=== PATIENT | male | born 1965 | race Caucasian/White ===

== ENCOUNTER 2017-04-06 14:43 | Emergency (ER) | payer MEDICAID ==
[~2017-04-06] VITALS: Ht 175.3 cm; Wt 88.5 kg
[~2017-04-06 14:43] MED LIST: CELEXA20 MG ORAL; CYCLOBENZAPRINE10 MG ORAL; INDOMETHACIN75 MG ORAL; NORCO 5-325 TA1 EACH PO
[2017-04-06 14:55] VITALS: BP 131/89
[2017-04-06] MEDS ORDERED: Bacitracin Oint UD TOPIC ONE (15:45)
[2017-04-06] MEDS ORDERED: Ketorolac 60mg Inj IM ONE (15:45)
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
[2017-04-06] MEDS ORDERED: IBUPROFEN600 MG ORAL (16:12)
[2017-04-06] MEDS ORDERED: CYCLOBENZAPRINE10 MG ORAL (16:12)
[2017-04-06] MEDS ORDERED: BACITRACIN-P28.35 GM TP (16:12)
[2017-04-06 16:21] VITALS: BP 123/85
== END 2017-04-06 16:24 | disposition home or self-care (01) ==
LOC: EMR 15:35
DX: S50.811A Abrasion of right forearm, initial encounter (principal); S80.811A Abrasion, right lower leg, initial encounter; S70.01XA Contusion of right hip, initial encounter; S70.11XA Contusion of right thigh, initial encounter; V09.9XXA Pedestrian injured in unspecified transport accident, initial encounter; Y92.410 Unspecified street and highway as the place of occurrence of the external cause
CPT/HCPCS: 96372; 99284

== ENCOUNTER 2017-04-25 18:03 | Emergency (ER) | payer MEDICAID ==
[~2017-04-25] VITALS: Ht 175.3 cm; Wt 93.0 kg
[~2017-04-25 18:03] MED LIST changes: +BACITRACIN-P28.35 GM TP; +IBUPROFEN600 MG ORAL
[2017-04-25] MEDS ORDERED: BUPROPION XL300 MG ORAL (18:14)
[2017-04-25] MEDS ORDERED: ATORVASTATIN CA20 MG ORAL (18:14)
[2017-04-25] MEDS ORDERED: CELEXA20 MG ORAL (18:14)
[2017-04-25 19:25] VITALS: BP 132/80
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
[2017-04-25] MEDS ORDERED: Norco 5mg/325mg tab ORAL ONE (20:30)
[2017-04-25] MEDS ORDERED: LIDODERM700 M1 TOPIC (20:36)
[2017-04-25] MEDS ORDERED: TYLENOL EXTRA500 MG ORAL (20:36)
[2017-04-25 20:44] VITALS: BP 132/80
--- NOTE | 2017-04-26 10:50 | Diagnostic Imaging Report ---
Indication: PAIN Technique: 3 views of the left shoulder Comparison: none Findings: No acute fractures. No dislocations. Joint spaces are preserved Impression:Negative This agrees with the preliminary interpretation provided by the emergency room physician
--- NOTE | 2017-04-26 10:51 | Diagnostic Imaging Report ---
Indication: PAIN Technique: One view of the chest. Multiple views of the right ribs Comparison: None Findings: The lungs and pleural spaces are clear. Heart size is normal. There is no evidence of pneumothorax. Ribs demonstrate no evidence of acute fracture. Impression: Negative
== END 2017-04-25 20:44 | disposition home or self-care (01) ==
LOC: EMR 19:19
DX: S20.211A Contusion of right front wall of thorax, initial encounter (principal); M25.512 Pain in left shoulder; V09.9XXA Pedestrian injured in unspecified transport accident, initial encounter; Y92.89 Other specified places as the place of occurrence of the external cause
CPT/HCPCS: 99284